=== PATIENT | male | born 1970 | race Caucasian/White ===

== ENCOUNTER → 2024-11-07 | Outpatient (CLI) | payer BC, SELFPAY ==
--- NOTE | 2024-11-07 16:30 | XR_ITS ---
Examination: MRI lumbar spine without contrast Date and time of exam: November 07, 2024 1745 hours INDICATIONS: Low back pain radiating down the right leg numbness and cramping in the right leg paresthesias with month Technique: Multiple MRI axial and sagittal sections lumbar spine. Sagittal T2-weighted images, TR 3500, TE 118 T1 weighted transverse sections, TR 688 T8.5, T2-weighted sagittal sections T1 weighted sagittal sections TR 621, TE 30 T2 axial sections, TR 4, 190, TE 84. Findings: Adequate alignment lumbar vertebral bodies on the lateral No lumbar fracture Lumbar spondylosis, mild Diffuse lumbar disc desiccation No spondylolisthesis L5-S1 2 mm central lumbar disc bulge L4-L5 4 mm central lumbar disc bulge with extruded 9 mm disc fragment, in the right foraminal region, sagittal image 6 which is impinging on the right L4 nerve root, sagittal image 5 axial image 6 Through L4 small foraminal disc bulges L2-L3 no disc protrusion L1-L2 no disc protrusion IMPRESSION: L4-L5 4 mm central lumbar disc bulge with extruded 9 mm disc fragment in the right foraminal region impinging upon the right L4 nerve root
== END | disposition home or self-care (01) ==
LOC: SMRI 16:35
PROVIDERS: PCP Orthopaedic Surgery; Referring Provider Orthopaedic Surgery; Visit Provider Orthopaedic Surgery
DX: M51.369 Other intervertebral disc degeneration, lumbar region without mention of lumbar back pain or lower extremity pain (principal); M51.26 Other intervertebral disc displacement, lumbar region
CPT/HCPCS: 72148

== ENCOUNTER → 2024-11-30 | Outpatient (BNVA) | payer BC, SELFPAY | END | disposition home or self-care (01) | PROVIDERS: PCP Orthopaedic Surgery; Referring Provider Orthopaedic Surgery; Visit Provider Urology | DX: N40.0 Benign prostatic hyperplasia without lower urinary tract symptoms (principal); M54.9 Dorsalgia, unspecified; Z80.42 Family history of malignant neoplasm of prostate; Z87.442 Personal history of urinary calculi; E66.9 Obesity, unspecified; Z68.28 Body mass index [BMI] 28.0-28.9, adult | CPT/HCPCS: 81003; 99212; G0463 ==

== ENCOUNTER → 2025-01-11 | Outpatient (CLI) | payer BC, SELFPAY ==
[2025-01-11 16:42] LABS: Anion Gap 10 (7-16); BUN/Creatinine Ratio 16 Ratio (12-20); Blood Urea Nitrogen 18 mg/dL (9-23); Calcium 8.8 mg/dL (8.3-10.6); Carbon Dioxide 27.3 mMol/L (20.0-31.0); Chloride 106 mMol/L (98-107); Creatinine (Component) 1.1 mg/dL (0.6-1.3); Glucose 109 mg/dL (74-106); Osmolality,Calculated 287 (275-295); Potassium 3.6 mMol/L (3.4-5.1); Prostate Specific Antigen 0.99 ng/mL (0-4.00); Sodium 143 mMol/L (136-145); eGFR > 60 See Note
== END | disposition home or self-care (01) ==
LOC: COPL 14:48
PROVIDERS: PCP Family Medicine; Referring Provider Orthopaedic Surgery; Visit Provider Urology
DX: N40.1 Benign prostatic hyperplasia with lower urinary tract symptoms (principal)
CPT/HCPCS: 36415; 80048; 84153

== ENCOUNTER → 2025-01-12 | Outpatient (CLI) | payer BC, SELFPAY ==
--- NOTE | 2025-01-12 14:00 | XR_ITS ---
Examination: CT abdomen with intravenous contrast CT pelvis with intravenous contrast 2-D coronal reconstructions 2-D sagittal reconstructions Date and time of exam:January 12, 2025 1426 hours INDICATIONS: Diagnosis benign prostatic hypertrophy lower back pain 2 months. CTDI: vol (mGy) 19.7 DLP: (mGycm) 1227 Technique: Multiple axial sections of the abdomen and pelvis have been obtained. 64 slice high-resolution scanner used. 3 mm axial sections have been obtained, post intravenous injection 60 cc [id number] 2-D sagittal, coronal reconstructions obtained. Low dose protocols were performed. One or more of the following dose reduction techniques were used; automated exposure control, adjustment of the mA and/or KV according to patient size, use of iterative reconstruction technique. Findings: No focal liver or splenic lesions Gallstones No pancreatic or adrenal mass No renal or ureteral calculi Left parapelvic cysts 3 mm lower pole left renal calculus, no hydronephrosis or ureteral calculi Normal appendix No bowel obstruction No diverticulitis Transverse prostate dimension 3.9 cm Tiny fat-containing hernias Urinary bladder contracted IMPRESSION: No hydronephrosis 3 mm upper pole left renal calculus Transverse prostate dimension 3.9 cm
== END | disposition home or self-care (01) ==
LOC: SCAT 13:25
PROVIDERS: PCP Orthopaedic Surgery; Referring Provider Urology; Visit Provider Urology
DX: N20.0 Calculus of kidney (principal); N42.89 Other specified disorders of prostate
CPT/HCPCS: 74177; A4649; Q9967

== ENCOUNTER → 2025-01-26 | Outpatient (BNVA) | payer BC, SELFPAY | END | disposition home or self-care (01) | PROVIDERS: PCP Orthopaedic Surgery; Referring Provider Orthopaedic Surgery; Visit Provider Urology | DX: N40.1 Benign prostatic hyperplasia with lower urinary tract symptoms (principal); N13.8 Other obstructive and reflux uropathy; Z80.42 Family history of malignant neoplasm of prostate; E66.9 Obesity, unspecified; Z68.28 Body mass index [BMI] 28.0-28.9, adult | CPT/HCPCS: 81003; 99212; G0463 ==